=== PATIENT | male | born 1940 | race Caucasian/White ===

== ENCOUNTER 2021-02-21 10:29 | Inpatient (IN) | payer MEDICARE, BC ==
[~2021-02-21] VITALS: Ht 180.3 cm; Wt 81.8 kg
[2021-02-21] MEDS ORDERED: MIRAPEX0.25 MG (13:06)
--- NOTE | 2021-02-21 13:17 | NUR ---
PATIENT ARRIVED VIA EMS TO ROOM 2111 AT 1255. ADMITTED TO FACILITY FROM [facility] FOR PNEUMONIA. RESP ARE SHALLOW AND WEAK. O2 IN USE VIA NASAL CANNULA AT 2L SATS 98. LUNG SOUNDS DIMINISHED BILATERAL LOWER AND MID LOBES. HEART SOUNDS REG RATE AND RYTHYM. EDEMA NOTED TO BILATERAL LOWER EXTREMITES +1. PATIENT IS ABLE TO MAKE NEEDS KNOWN, KNOWS WHERE HE IS, BIRTHDAY AND THAT HE WAS TRANSFERRED BY EMS. IS ABLE WITH ASSISTANCE TO AMBULATE TO BATHROOM. CONTINENT OF BOWEL AND BLADDER. SKIN LOOKED GOOD SLIGHT REDNESS TO BUTTOCKS NO BREAK DOWN. SEVERAL BRUISES NOTED TO BILATERAL UPPER ARMS. IV 20 GAUGE TO LEFT FOREARM PLACED BY EMS PATENT AND FLUSHES WELL.
[2021-02-21] MEDS ORDERED: POT CL MICRO (13:27)
[2021-02-21] MEDS ORDERED: FUROSEMIDE40 MG (13:28)
[2021-02-21] MEDS ORDERED: ALDACTONE25 MG PO (13:28)
[2021-02-21] MEDS ORDERED: WARFARIN SODIUM5 MG (13:29)
[2021-02-21] MEDS ORDERED: REMERON30 MG (13:31)
[2021-02-21] MEDS ORDERED: ZOLOFT100 MG PO (13:32)
[2021-02-21] MEDS ORDERED: PROTONIX40 MG PO (13:34)
[2021-02-21] MEDS ORDERED: BUSPAR5 MG PO (13:35)
[2021-02-21] MEDS ORDERED: GLUCOPHAGE500 MG PO (13:37)
[2021-02-21] MEDS ORDERED: ISOSORBIDE MONO30 M1 (13:37)
[2021-02-21] MEDS ORDERED: LOPRESSOR25 MG PO (13:39)
[2021-02-21] MEDS ORDERED: KEPPRA500 MG PO (13:40)
[2021-02-21] MEDS ORDERED: TRICOR145 MG PO (13:46)
[2021-02-21] MEDS ORDERED: ZOCOR40 MG PO (13:47)
[2021-02-21] MEDS ORDERED: VITAMIN B-12500 MCG PO (13:48)
[2021-02-21] MEDS ORDERED: ASPIRIN81 MG PO (13:49)
[2021-02-21] MEDS ORDERED: ROCEPHIN 1 GM/D51 G1 IV (13:50)
[2021-02-21] MEDS ORDERED: ZITHROMAX 500M500 MG IV (13:51)
[2021-02-21 14:29] VITALS: BMI 25.1
[2021-02-21 15:33] LABS: BASOPHILS 0.5 % (0-2); EOSINOPHILS 4.7 % (0-7); HEMATOCRIT 38.1 % (42.0-54.0); HEMOGLOBIN 12.5 g/dL (13.5-17.5); LYMPHOCYTES 14.3 % (15-50); MCH 30.1 pg (26.0-34.0); MCHC 32.8 g/dL (31.0-37.0); MCV 91.9 fL (80.0-100.0); MONOCYTES 4.1 % (2-11); NEUTROPHILS 76.4 % (40-80); PLATELET COUNT 132 10x3/uL (130-400); RBC 4.14 10x6/uL (4.20-6.10); RDW 14.7 % (11.5-14.5); WBC 5.4 10x3/uL (4.8-10.8)
[2021-02-21 15:42] LABS: INR 3.5 (0.85-1.17); PROTIME 32.7 SECONDS (11.6-15.0)
[2021-02-21 15:54] LABS: ALBUMIN 3.3 g/dL (3.4-5.0); ANION GAP 10.7 mmol/L (8-16); BILIRUBIN - TOTAL 0.51 mg/dL (0.2-1.3); CALCIUM 7.9 mg/dL (8.5-10.1); CARBON DIOXIDE 29.6 mmol/L (21.0-32.0); CREATININE - SERUM 1.9 mg/dL (0.6-1.3); POTASSIUM - SERUM 4.3 mmol/L (3.5-5.1); PROTEIN - SERUM 6.5 g/dL (6.4-8.2)
[2021-02-21 15:55] LABS: CKMB 3.2 U/L (0.0-3.6); CREATINE KINASE 92 UL (21-232); TROPONIN-I 0.038 ng/mL (0.000-0.060)
[2021-02-21 16:28] VITALS: Ht 180.3 cm; Wt 81.8 kg
[2021-02-21 18:43] VITALS: BP 118/62
--- NOTE | 2021-02-21 19:46 | NUR ---
RECEIVED REPORT, WILL ASSUME CARE OF PT, RESTING, AT BEDSIDE, DENIES ANY NEEDS AT THIS TIME, BED IS LOW, SRX2, CALL LIGHT IN REACH, WILL CONTINUE PLAN OF CARE
[2021-02-21 21:48] LABS: CKMB 2.9 U/L (0.0-3.6); CREATINE KINASE 88 UL (21-232); TROPONIN-I 0.022 ng/mL (0.000-0.060)
[2021-02-22] VITALS (7 sets, daily range): BP systolic 103–154; BP diastolic 54–76
[2021-02-22 07:32] LABS: CKMB 3.7 U/L (0.0-3.6); CREATINE KINASE 89 UL (21-232); TROPONIN-I 0.023 ng/mL (0.000-0.060)
--- NOTE | 2021-02-22 11:45 | NUR ---
BLOOD SUGAR OF 126, NO COVERAGE NEEDED PER S/S. SCDS PLACED ON BILAT LEGS. PT DENIES ANY NEEDS AT THIS TIME. CALL LIGHT IN REACH, SPOUSE AT BEDSIDE.
--- NOTE | 2021-02-22 16:21 | NUR ---
BLOOD SUGAR OF 199, 2UNITS OF INSULIN GIVEN PER S/S. ALSO HUNG IVPB ZITHROMAX. PT DENIES ANY NEEDS AT THIS TIME. ALL NEEDS MET, SPOUSE AT BEDSIDE, CALL LIGHT IN REACH.
--- NOTE | 2021-02-22 19:43 | NUR ---
RECEIVED REPORT, WILL ASSUME CARE OF PT, VISITING WITH , DENIES ANY NEEDS AT THIS TIME, BED IS LOW, SRX2, CALL LIGHT IN REACH, WILL CONTINUE PLAN OF CARE
[2021-02-23 04:24] VITALS: BP 128/67
--- NOTE | 2021-02-23 06:52 | NUR ---
I have reviewed this patient and I concur with the Shift Assessment completed by the Licensed Practical Nurse today this shift.
[2021-02-23 07:07] LABS: INR 2.26 (0.85-1.17); PROTIME 23.2 SECONDS (11.6-15.0)
[2021-02-23 07:14] LABS: BASOPHILS 0.4 % (0-2); EOSINOPHILS 5.7 % (0-7); HEMATOCRIT 35.1 % (42.0-54.0); HEMOGLOBIN 11.7 g/dL (13.5-17.5); LYMPHOCYTES 13.4 % (15-50); MCH 30.4 pg (26.0-34.0); MCHC 33.2 g/dL (31.0-37.0); MCV 91.6 fL (80.0-100.0); MONOCYTES 5.1 % (2-11); NEUTROPHILS 75.4 % (40-80); PLATELET COUNT 148 10x3/uL (130-400); RBC 3.84 10x6/uL (4.20-6.10); RDW 14.7 % (11.5-14.5)
[2021-02-23 07:30] VITALS: BP 119/68
[2021-02-23 07:33] LABS: ALBUMIN 3.3 g/dL (3.4-5.0); ANION GAP 12.4 mmol/L (8-16); BILIRUBIN - TOTAL 0.38 mg/dL (0.2-1.3); CALCIUM 8.3 mg/dL (8.5-10.1); CARBON DIOXIDE 25.6 mmol/L (21.0-32.0); CREATININE - SERUM 1.5 mg/dL (0.6-1.3); PROTEIN - SERUM 6.9 g/dL (6.4-8.2)
--- NOTE | 2021-02-23 09:57 | CN ---
PATIENT NAME:JULIANA LEACH MEDICAL RECORD: [id number] : 36 LOCATION:[facility] D.1 ADMIT DATE: 02/21/21 ACCOUNT: [id number] CONSULTING PHYSICIAN: KATHLEEN DAVIDSON MD REFERRING PHYSICIAN: SHANTI SAHA MD DATE OF CONSULTATION: 02/22/2021 HISTORY OF PRESENT ILLNESS: An 80-year-old transferred from [place] with a history of pneumonitis, subsequently found to have elevated troponin, questionable episode of ventricular tachycardia on telemetry. 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 No history of chest pain. He does have a history of sick sinus syndrome status post pacemaker placement. We are asked to see him concerning his cardiovascular status. PAST MEDICAL HISTORY: Includes history of; 1. Sick sinus syndrome status post pacer with AFib and on warfarin for CVA prophylaxis. 2. Hypertension. 3. Dyslipidemia. 4. Dementia. 5. Seizure disorder. 6. Diabetes mellitus. ALLERGIES: AMIODARONE AND MORPHINE. MEDICATIONS: Include metformin 1/2 gram b.i.d., Protonix 40 daily, Lasix 40 daily, aspirin 81 daily, Keppra 500 mg p.o. at bedtime, BuSpar 5 mg p.o. t.i.d., Zoloft 100 daily, Remeron 30 mg at bedtime, Mirapex 0.25 daily, Imdur 30 mg p.o. daily, simvastatin 40 daily, fenofibrate 145 daily, metoprolol 25 b.i.d., Aldactone 25 daily, warfarin per scale. SOCIAL HISTORY: He lives in the [place] area. He is a nonsmoker and nondrinker. He does take care of his ADLs and has good family support. REVIEW OF SYSTEMS: The patient reports easy bruising but reports no swollen glands. The patient reports no fever, no night sweats, no significant weight gain, no significant weight loss. No significant exercise tolerance. The patient reports no dry eyes, no irritation, no vision change. Patient reports no difficulty hearing and no ear pain. Patient reports no frequent nose bleeds or nose and sinus problems. Patient reports on arm pain on exertion. No shortness of breath while lying down. No history of heart murmur. Patient reports no cough, no wheezing or coughing up blood. Patient reports no abdominal pain, no vomiting. Normal appetite. No diarrhea and not vomiting blood. No nausea and no constipation. Patient reports no incontinence. No difficulty urinating. No hematuria. No increased frequency. Patient reports no muscle aches. No weakness, no arthralgias, no back pain. No swelling of the extremities. Patient reports no abnormal mole, no jaundice, no rashes. Reports no loss of consciousness. No weakness and no numbness. No seizures, dizziness, or headaches. The patient reports no depression, no sleep disturbance, feeling safe in a relationship and no alcohol abuse. Patient reports on fatigue. Reports no runny nose or sinus pressure. No itching, no hives, and no frequent sneezing. CONSULT REPORT [id number] JULIANA LEACH PHYSICAL EXAMINATION: GENERAL: Elderly gentleman in no acute distress, appears stated age. VITAL SIGNS: 154/67, pulse 70 and regular. HEENT: Normocephalic, atraumatic. NECK: No bruits were noted. HEART: Currently regular. II/ systolic ejection murmur. LUNGS: Diminished breath sounds to the left base. ABDOMEN: Soft and nontender. EXTREMITIES: Pulses 2+. No edema. NEUROLOGIC: Grossly intact. IMPRESSION: Certainly could have some demand ischemia with underlying pneumonitis in the face of atrial fibrillation with aberrancy. Rhythm still down at this point with a P-synchronous pacing. We will check echocardiographic study for any focal wall motion abnormalities. Further recommendation based on clinical course. TRANSINT:[id number] Voice Confirmation ID: [id number] DOCUMENT ID: [id number] KATHLEEN DAVIDSON MD at 0957 CC: [id number] DICTATION DATE: 02/22/21 1117 PIPE LAYER HELPER: 02/22/21 1145 ADM IN [facility] [address] [place] [address]
--- NOTE | 2021-02-23 11:15 | NUR ---
PATIENT IS BLIND. PATIENT MIN ASST TO STAND FROM TOILET AND WALKED 250 FEET USING WALKER WITH MIN ASST.
[2021-02-23 11:30] VITALS: BP 123/64
--- NOTE | 2021-02-23 11:30 | NUR ---
BLOOD SUGAR OF 145, NO COVERAGE NEEDED PER S/S. PT DENIES ANY NEEDS AT THIS TIME. CALL LIGHT IN REACH, SPOUSE AT BEDSIDE.
[2021-02-23 16:00] VITALS: BP 118/59
--- NOTE | 2021-02-23 16:32 | NUR ---
IVPB ZITHROMAX HUNG AT THIS TIME. BLOOD SUGAR OF 167, NO COVERAGE PER PT REQUEST. PT DENIES ANY NEEDS AT THIS TIME. CALL LIGHT IN REACH, SPOUSE AT BEDSIDE.
[2021-02-23 20:16] VITALS: BP 107/61
--- NOTE | 2021-02-23 21:51 | NUR ---
RECIEVED LAYING IN BED WITH SPOUSE AT BEDSIDE. ALERT AND ORIENTED X4. REQUIRES ASSIST TO TRANSFER. DENIES ANY NEEDS AT THIS TIME.
[2021-02-24 00:20] VITALS: BP 122/55
[2021-02-24 05:21] VITALS: BP 115/65
[2021-02-24 05:45] LABS: BASOPHILS 0.4 % (0-2); EOSINOPHILS 5.2 % (0-7); HEMATOCRIT 33.5 % (42.0-54.0); HEMOGLOBIN 11.1 g/dL (13.5-17.5); LYMPHOCYTES 16.2 % (15-50); MCH 30.3 pg (26.0-34.0); MCHC 33.2 g/dL (31.0-37.0); MCV 91.5 fL (80.0-100.0); MEAN PLATELET VOLUME 8.1 fL (7.4-10.4); MONOCYTES 6.2 % (2-11); PLATELET COUNT 153 10x3/uL (130-400); RBC 3.66 10x6/uL (4.20-6.10); RDW 14.4 % (11.5-14.5); WBC 4.5 10x3/uL (4.8-10.8)
[2021-02-24 05:48] LABS: INR 1.55 (0.85-1.17); PROTIME 17.2 SECONDS (11.6-15.0)
[2021-02-24 05:57] LABS: ALBUMIN 3.2 g/dL (3.4-5.0); BILIRUBIN - TOTAL 0.44 mg/dL (0.2-1.3); CALCIUM 8.1 mg/dL (8.5-10.1); CARBON DIOXIDE 28.4 mmol/L (21.0-32.0); CREATININE - SERUM 1.7 mg/dL (0.6-1.3); POTASSIUM - SERUM 4.4 mmol/L (3.5-5.1); PROTEIN - SERUM 6.8 g/dL (6.4-8.2)
[2021-02-24 08:00] VITALS: BP 125/63
[2021-02-24] MEDS ORDERED: OMNICEF300 MG PO (08:44)
[2021-02-24 11:45] VITALS: BP 132/69
--- NOTE | 2021-02-24 13:16 | NUR ---
ALERT AND ORIENTED X4. SITTING UP IN BED. SPOUSE AT BEDSIDE. DC LT FA IV TIP INTACT. DISCHARGE INSTRUCTIONS GIVEN VERBALLY AND WRITTEN. DISCHARGE PAPERS SIGNED ON CHART. WAITING FOR RIDE.
--- NOTE | 2021-02-24 16:44 | MORECARE ---
CASE MANAGEMENT DISCHARGE SUMMARY PATIENT: JULIANA GALLARDO UNIT: [id number] ADM DATE: 02/21/21 AGE: 80 : 38 SEX: M ROOM/BED: D.2120 AUTHOR: DELMYDOC PHYSICIAN: REFERRING PHYSICIAN: SHANTI SAHA MD DATE OF SERVICE: 02/24/21 Case Management Discharge Planning Summary COMMENTS ENTERED DATE: 02/24/21 16:38 CT COMMENT TYPE: Discharge Planning REVIEWER: Maida Alvarado CM met with patient to complete discharge planning assessment and offer availability of needed services. Patient states that he lives independently at home with hid prior to admission. Trixie Gallardo ([phone]) present in room at time of DCP and verified that home environment is safe and has electricity and running water. Patient denies need for transportation and state that they have funds for services and medications if needed. PCP is Dr. Gomez and patient uses [facility] in [place]. CM offered and discussed home health, rehab services, and need for any medical equipment. Patient did not express need for offered services at this time. Transportation home will be provided by spouse. Patient verbalized understanding of signed forms. IMM served, and signed copy placed on chart. Pt denies need for additional services or needs at this time. DCP REVIEW SUMMARY ANTICIPATED D/C DATE: 02/24/2021 EXPECTED LOS : 3 CASE STATUS: DCP Initiated INITIAL REVIEW: 02/21/2021 INITIAL REVIEWER: Maida Alvarado FINAL DISCHARGE DISPOSITION: 01 : Home or Self Care (Routine Discharge) FINAL REVIEWER: FINAL REVIEW DATE: DCP Focus Questions & Answers DCP Screen QUESTION: ANSWER High Risk Factors: : Hosp related to CHF, COPD, DM, End Stage Ds, CVA, CA DCP Evaluation QUESTION: ANSWER Patient gives permission to discuss discharge plans with: (name, relationship and number) : TRIXIE GALLARDO () Patient's ability to cope with chronic illness : d. No chronic illness Patient's current cognitive status: : *Oriented to person, place, situation, time and present Family / Caregiver's ability to cope with chronic illness: : a. Adequate (ability to meet patient's medical needs, ensures patient attends medical appts.) Patient and/or caregiver agree upon recommended discharge plan? : Yes Physical Status: : Independent with ADL's Family / Caregiver's ability to cope with chronic illness: : a. Adequate (ability to meet patient's medical needs, ensures patient attends medical appts.) Functional screen assessment: : Basic needs can adequately be met by self Does the patient have the ability to pay for or attain post discharge needs / services? : N/A Living Arrangements: : Home with others Is there a likelihood that the patient will require additional services to return to the preadmission environment? : N/A Equipment needed for post hospitalization: : None Patient with capacity for self-care or can be cared for in same environment as prior to hospitalization? : Yes Results of this evaluation have been discussed with: : Patient Physical environment modification needed / anticipated for discharge: : N/A Medication Management: : Patient states can afford medications Medication Management: : Patient states they do have transportation to product picker medications Medication Management: : Patient states can read and understand medication labels [facility] Planned post hospital services available for patient? : N/A Does Patient have transportation to get home and to follow-up medical appointments when discharged from the hospital? : Yes Planned post hospital services covered by insurance plan? : N/A Would patient like to participate in any Care Coordination programs (if applicable): : Not applicable Does the patient have electricity at home? : Yes Does the patient have running water in their house? : Yes Equipment in use: : None Mental health screen: : No mental health history Psychosocial status: : Independent adult (65+) Abuse/Neglect: : None Resources / Services in place: : None DCP Re-evaluation QUESTION: ANSWER Would patient like to participate in any Care Coordination programs (if applicable): : Not applicable PATIENT: JULIANA GALLARDO ENCOUNTER: [id number] MEDICAL RECORD#: [id number] ADMISSION DATE: 02/21/2021 DISCHARGE DATE: 02/24/2021 ATTENDING MD: SHANTI FERNANDEZ : AGE: 80 MARITAL STATUS: M DC PLAN ID: [id number] FACILITY: [facility] PRINTED ON: 02/24/21 16:44 CT All edits/amendments must be made on the electronic document DICTATION DATE: 02/24/211643 BANANA HANDLER: PAUL 02/24/211643 RPT#: [id number] DC DATE:02/24/21 STATUS: DIS IN [facility] [address] [place] [address] END OF REPORT
--- NOTE | 2021-02-25 14:27 | EC ---
PATIENT:JULIANA LEACH DATE OF SERVICE: 02/21/21 SEX: M MEDICAL RECORD: [id number] DATE OF : 36 LOCATION:D.M2 D.212 AGE OF PATIENT: 80 ADMISSION DATE: 02/21/21 REFERRING PHYSICIAN: INTERPRETING PHYSICIAN: KATHLEEN DAVIDSON MD ECHOCARDIOGRAM REPORT ECHO CHARGES 4 ECHO COMPLETE Date: 02/22/21 CLINICAL DIAGNOSIS: ATRIAL HX OF ICD/CMP ECHOCARDIOGRAPHIC MEASUREMENTS (adult normal given) AC root (d.<3.7cm) 4.6 cm LV Septum d (<1.2 cm> 1.5 cm Valve Excursion 1.8 cm LV Septum (systole) 1.8 cm Left Atria (s.<4.0cm> 4.0 cm LVPW d(<1.2cm) 1.8 cm RV (d.<2.3cm) 4.7 cm LVPW (sytole) 2.0 cm LV diastole(<5.6CM) 3.7 cm MV E-F(>70mm/sec) cm LV systole 2.9 cm LVOT Diameter 1.7 cm MV exc.(>10mm) cm Est.ejection fraction (50-75%) % DOPPLER: LVIT cm/sec A cm/sec E 138.0 cm/sec LA cm/sec RVSP 53 mmHg LVOT 124 cm/sec AOP1/2T m/s Asc. Ao 146 cm/sec RVOT 81 cm/sec RA cm/sec PA 95 cm/sec AV Gradient Peak 8.49 mmHg AV Mean 3.75 mmHg AV Area 2.2 cm MV Gradient Peak 8.12 mmHg MV Mean 2.65 mmHg MV Area cm COMMENTS: Supervisor Dumping: 2 EZRA FINK Cable Worker Helper: 3 Dr. Alcocer TAPE# PACS Pericardial Effusion N DATE OF SERVICE: Adequate 2D, color flow imaging, spectral Doppler, and M-Mode. LVH is present. LV internal dimensions are normal. Wall motion normal. EF greater than or equal to 55%. Aortic valve is tricuspid. No evidence of stenosis by Doppler interrogation. Left atrium is upper limits of normal at 4.0 cm. Mitral valve shows no prolapse. Trace MR. Right-sided chambers are grossly normal. Trace TR. ECHOCARDIOGRAM REPORT [id number] JULIANA LEACH TRANSINT:[id number] Voice Confirmation ID: [id number] DOCUMENT ID: [id number] KATHLEEN DAVIDSON MD at 1427 CC: [id number] DICTATION DATE: 02/23/2149 TIE SAWYER: 02/23/21 1125 DIS IN 02/24/21 [place] [id number] [place] [id number]
== END 2021-02-24 14:29 | disposition home or self-care (01) | DRG 193 ==
LOC: D.M2 10:29
PROVIDERS: Emergency Medicine; ADMIT Family Medicine; ATTEND Family Medicine
DX: J18.9 Pneumonia, unspecified organism (principal); G93.41 Metabolic encephalopathy; I24.8 Other forms of acute ischemic heart disease; I50.30 Unspecified diastolic (congestive) heart failure; E78.5 Hyperlipidemia, unspecified; F03.90 Unspecified dementia, unspecified severity, without behavioral disturbance, psychotic disturbance, mood disturbance, and anxiety; G40.909 Epilepsy, unspecified, not intractable, without status epilepticus; I48.91 Unspecified atrial fibrillation; K21.9 Gastro-esophageal reflux disease without esophagitis; E11.65 Type 2 diabetes mellitus with hyperglycemia; I11.0 Hypertensive heart disease with heart failure; G25.81 Restless legs syndrome